=== PATIENT | male | born 1975 | race Caucasian/White ===

== ENCOUNTER 2024-01-13 15:25 | Outpatient (CLI) | payer OTHER | END 2024-01-13 23:59 | disposition home or self-care (01) | LOC: RAD 15:25 | PROVIDERS: ATTEND Podiatrist Foot & Ankle Surgery | DX: S92.321D Displaced fracture of second metatarsal bone, right foot, subsequent encounter for fracture with routine healing (principal); M19.071 Primary osteoarthritis, right ankle and foot; M79.671 Pain in right foot; M25.871 Other specified joint disorders, right ankle and foot; X58.XXXD Exposure to other specified factors, subsequent encounter | CPT/HCPCS: 73700 ==